=== PATIENT | female | born 1960 | race Caucasian/White ===

== ENCOUNTER → 2020-08-14 12:40 | Outpatient (BNVA) | payer OTHER, SELFPAY | PROVIDERS: PCP Family Medicine; Visit Provider Physician Assistant Medical | DX: S00.33XA Contusion of nose, initial encounter (principal); R04.0 Epistaxis; S60.211A Contusion of right wrist, initial encounter; W22.09XA Striking against other stationary object, initial encounter | CPT/HCPCS: 29125; 70160; 73110; 99204 ==

== ENCOUNTER → 2020-08-16 14:08 | Outpatient (BNVA) | payer OTHER, SELFPAY | PROVIDERS: PCP Family Medicine; Visit Provider Physician Assistant Medical | DX: S00.33XA Contusion of nose, initial encounter (principal); S60.211A Contusion of right wrist, initial encounter; X58.XXXA Exposure to other specified factors, initial encounter | CPT/HCPCS: 70450; 99214 ==

== ENCOUNTER → 2020-08-20 08:43 | Outpatient (BNVA) | payer OTHER, SELFPAY | PROVIDERS: PCP Family Medicine; Visit Provider Physician Assistant Medical | DX: S02.2XXA Fracture of nasal bones, initial encounter for closed fracture (principal); S60.211A Contusion of right wrist, initial encounter; S16.1XXA Strain of muscle, fascia and tendon at neck level, initial encounter; S63.511A Sprain of carpal joint of right wrist, initial encounter; X58.XXXA Exposure to other specified factors, initial encounter | CPT/HCPCS: 73200; 99214 ==

== ENCOUNTER → 2020-08-23 10:48 | Outpatient (BNVA) | payer OTHER, SELFPAY | PROVIDERS: PCP Family Medicine; Visit Provider Physician Assistant Medical | DX: S06.0X0A Concussion without loss of consciousness, initial encounter (principal); S02.2XXA Fracture of nasal bones, initial encounter for closed fracture; S62.171A Displaced fracture of trapezium [larger multangular], right wrist, initial encounter for closed fracture; S60.211A Contusion of right wrist, initial encounter; S16.1XXA Strain of muscle, fascia and tendon at neck level, initial encounter; X58.XXXA Exposure to other specified factors, initial encounter | CPT/HCPCS: 99213 ==

== ENCOUNTER → 2020-08-28 10:21 | Outpatient (BNVA) | payer OTHER, SELFPAY | PROVIDERS: PCP Family Medicine; Visit Provider Orthopaedic Surgery | DX: S60.211A Contusion of right wrist, initial encounter (principal); R20.0 Anesthesia of skin; R20.2 Paresthesia of skin; W22.01XA Walked into wall, initial encounter; Y93.9 Activity, unspecified; Y92.9 Unspecified place or not applicable; Y99.9 Unspecified external cause status | CPT/HCPCS: 99202 ==

== ENCOUNTER → 2020-08-30 11:27 | Outpatient (BNVA) | payer OTHER, SELFPAY | PROVIDERS: PCP Family Medicine; Visit Provider Physician Assistant Medical | DX: S06.9X0A Unspecified intracranial injury without loss of consciousness, initial encounter (principal); S02.2XXA Fracture of nasal bones, initial encounter for closed fracture; S62.101A Fracture of unspecified carpal bone, right wrist, initial encounter for closed fracture; W22.8XXA Striking against or struck by other objects, initial encounter | CPT/HCPCS: 99214 ==

== ENCOUNTER → 2020-09-04 14:42 | Outpatient (BNVA) | payer OTHER, SELFPAY | PROVIDERS: PCP Family Medicine; Visit Provider Physician Assistant Medical | DX: S06.9X0A Unspecified intracranial injury without loss of consciousness, initial encounter (principal); S02.2XXA Fracture of nasal bones, initial encounter for closed fracture; S62.101A Fracture of unspecified carpal bone, right wrist, initial encounter for closed fracture; S16.1XXA Strain of muscle, fascia and tendon at neck level, initial encounter; W22.8XXA Striking against or struck by other objects, initial encounter; M54.10 Radiculopathy, site unspecified | CPT/HCPCS: 99213 ==

== ENCOUNTER → 2020-09-11 10:09 | Outpatient (BNVA) | payer OTHER, SELFPAY | PROVIDERS: PCP Family Medicine; Visit Provider Physician Assistant Medical | DX: M79.601 Pain in right arm (principal) | CPT/HCPCS: 72050; 99214 ==

== ENCOUNTER → 2020-09-18 08:26 | Outpatient (BNVA) | payer OTHER, SELFPAY | PROVIDERS: PCP Family Medicine; Visit Provider Physician Assistant Medical | DX: S06.9X0D Unspecified intracranial injury without loss of consciousness, subsequent encounter (principal); S02.2XXD Fracture of nasal bones, subsequent encounter for fracture with routine healing; X58.XXXD Exposure to other specified factors, subsequent encounter; M54.2 Cervicalgia; M54.10 Radiculopathy, site unspecified | CPT/HCPCS: 99213 ==

== ENCOUNTER 2020-09-21 18:47 | Outpatient (REF) | payer OTHER, SELFPAY ==
--- NOTE | 2020-09-21 18:49 | MR_ITS ---
MR CERVICAL SPINE WITHOUT CONTRAST CLINICAL INFORMATION: Cervical radiculopathy. Question nerve impingement. COMPARISON: Cervical spine radiographs 09/11/2020. Cervical spine MRI 03/12/2018. TECHNIQUE: MRI of the cervical spine was obtained using routine sequences without contrast. FINDINGS: Straightening of the cervical lordosis. Vertebral body heights are maintained. There is moderate disc volume loss at C5-C6 and mild disc volume loss at C6-C7, similar to the prior study. Modic type I endplate signal changes at C6-C7. No additional bone marrow edema. No acute fractures. Craniocervical junction is unremarkable. Cervical arterial flow voids are maintained. No significant soft tissue findings. No cord signal abnormality accounting for artifact. C2-C3: Slight annular disc bulge and mild bilateral facet arthropathy. No central canal stenosis and no foraminal stenosis. C3-C4: Disc osteophyte mildly narrows the central canal. Uncovertebral joint spurring and facet arthropathy result in mild bilateral foraminal encroachment. Findings are unchanged. C4-C5: Disc osteophyte mildly narrows the central canal. Uncovertebral joint spurring and hypertrophic facet arthropathy result in moderate to severe right and mild left foraminal stenosis that is unchanged. C5-C6: Disc osteophyte mildly narrows the central canal. Uncovertebral joint spurring and hypertrophic facet arthropathy result in similar severe bilateral foraminal stenosis. C6-C7: Disc osteophyte mildly narrows the central canal. Uncovertebral joint spurring and hypertrophic facet arthropathy result in mild bilateral foraminal encroachment. Findings are unchanged. C7-T1: Disc contour is normal. No central canal stenosis and no foraminal stenosis. MR/MR cervical spine wo con IMPRESSION: Stable appearing multilevel cervical spondylosis with multifactorial degenerative changes resulting in stable appearing moderate to severe right C4-C5 and severe bilateral C5-C6 foraminal stenosis. No severe central canal stenosis within the cervical spine.
== END 2020-09-21 18:48 | disposition home or self-care (01) ==
LOC: HO.MRI 18:47
PROVIDERS: Visit Provider Internal Medicine
DX: M54.12 Radiculopathy, cervical region (principal)
CPT/HCPCS: 72141

== ENCOUNTER → 2020-09-28 11:09 | Outpatient (BNVA) | payer OTHER, SELFPAY | PROVIDERS: PCP Family Medicine; Visit Provider Physician Assistant Medical | DX: S06.9X0D Unspecified intracranial injury without loss of consciousness, subsequent encounter (principal); S02.2XXD Fracture of nasal bones, subsequent encounter for fracture with routine healing; X58.XXXD Exposure to other specified factors, subsequent encounter; M54.12 Radiculopathy, cervical region | CPT/HCPCS: 99213 ==

== ENCOUNTER → 2020-10-08 11:42 | Outpatient (BNVA) | payer OTHER, SELFPAY | PROVIDERS: PCP Family Medicine; Visit Provider Physician Assistant Medical | DX: S06.9X0D Unspecified intracranial injury without loss of consciousness, subsequent encounter (principal); S02.2XXD Fracture of nasal bones, subsequent encounter for fracture with routine healing; X58.XXXD Exposure to other specified factors, subsequent encounter; M54.12 Radiculopathy, cervical region | CPT/HCPCS: 99213 ==

== ENCOUNTER → 2020-10-19 11:38 | Outpatient (BNVA) | payer OTHER, SELFPAY | PROVIDERS: PCP Family Medicine; Visit Provider Internal Medicine | DX: S06.9X0D Unspecified intracranial injury without loss of consciousness, subsequent encounter (principal); X58.XXXD Exposure to other specified factors, subsequent encounter; M54.12 Radiculopathy, cervical region; F07.81 Postconcussional syndrome | CPT/HCPCS: 99214 ==

== ENCOUNTER → 2020-11-06 11:18 | Outpatient (BNVA) | payer OTHER, SELFPAY | PROVIDERS: PCP Family Medicine; Visit Provider Internal Medicine | DX: F07.81 Postconcussional syndrome (principal); M54.12 Radiculopathy, cervical region | CPT/HCPCS: 99213 ==

== ENCOUNTER 2020-11-20 11:00 | Outpatient (RCR) | payer OTHER, SELFPAY ==
[2020-08-23 14:13] VITALS: BP 110/63; PULSE 61
--- NOTE | 2020-10-18 16:16 | MHC.PT.RE ---
[facility] [place] Office [place] Office [place] Office [address] Kanika Alexander [address] [phone] F: [phone] F: [phone] F: [phone] F: [phone] Physical Therapy Re-evaluation Diagnosis: concussion w/ neck strain Date of Surgery: N/A Date of Evaluation: 08/23/20 Treatments to Date: 12 Cancellations to Date: 0 No Shows to Date: 0 Subjective: pt stated she has been feeling much better since last session. pt arrived reporting 5/10 pain prior to start of session localized to L shoulder blade. Pain Score: 5 Pain Location: cervical spine, L radicular Objective Measures: Cervical AROM: -Flexion: 30 deg -Extension: 30 deg -Sidebend: B 25 (peripheralized pain w/ R SB) -Rotation: B 65 (peripheralized pain w/ R rotation) Vestibular: VOR: -Horizontal: able to maintain gaze stability at 40 bpm, began noticing double -Vertical: able to maintain gaze stability at 40 bpm, began noticing double VORc: unable to maintain at 40 bpm, blurriness reported -Smooth pursuit H test: no nystagmus, no symptoms Saccadic pursuit: -Horizontal: corrective saccade of R eye with R gaze upon fatigue -Vertical: corrective saccade of R eye with downward gaze upon fatigue Assessment: pt reported she feels 70% better since starting PT. pt is still limited by cervical movements, smooth pursuit for activities such as reading and crocheting, and audio input. She current reports 8/50 for her NDI. She has improved regarding her neck AROM and ability to perform smooth, saccadic and VOR pursuits. She now presents with difficulty achieving end range cervical ranges and fatigues with visual tracking. She still demonstrates difficulty concentrating with complex audio inputs and becomes symptomatic. She is able to manage her cervical pain at this time but requires cueing for compliance. pt would benefit from skilled PT for an additional 2x/wk for 4 wks to continue to address residual impairments related to her cervical radiculopathy and concussion symptoms. Short Term Goals: pt will be I w/ HEP to promote self-management of condition. - in progress pt will participate in balance testing to determine baseline functional mobility limitations. - GOAL MET AND WFL Shop Foreman Goals: pt will report statistically significant improvement in self-reported outcome measure, NDI, to promote return to PLOF. pt will demo 0 corrective saccades w/ smooth horizontal pursuit x 10 reps to facilitate return to reading for work-related tasks. -in progress Frequency and Duration: The patient will be seen 2x/wk for 4 wks Treatment Plan: Therapeutic Exercise Dynamic Therapeutic Activities Neuromuscular Re-ed Manual Therapies Joint Mobilization Taping Gait Vestibular Therapy Home Exercise Program Patient Education Mechanical Traction Hot or Cold Pack Reviewed/ Agreed with Student Documentation: Therapist: Electronically signed by: Binta Cuevas PT, DPT Please sign and return to therapist. Thank you for your referral.
--- NOTE | 2020-11-21 15:12 | MHC.PT.DC ---
[facility] Office [place] Office [place] Office [address] [phone] F: [phone] F: [phone] F: [phone] F: [phone] Physical Therapy Discharge Report Diagnosis: concussion w/ neck strain Date of Surgery: N/A Date of Evaluation: 08/23/20 Date of Discharge: 11/21/20 Treatments to Date: 20 Cancellations to Date: 5 No Shows to Date: 0 Discharge Status: Achieved Goals Improved Function Independent with HEP Discharge Summary: Pt arrived stating she is feeling better. She no longer had UT or shoulder pain. She also stated that her dizziness in 90% better after improving her hydration. All her HEPs were reviewed with her. Pt has improved and is independent with all HEPs. Pt d/c from therapy today. Electronically signed by: Binta Cuevas PT, DPT Please sign and return to therapist. Thank you for your referral.
== END 2020-11-21 15:13 | disposition other institution (70) ==
LOC: HO.PT 11:00
PROVIDERS: PCP Family Medicine; Visit Provider Physician Assistant Medical
DX: S06.0X9D Concussion with loss of consciousness of unspecified duration, subsequent encounter (principal); S16.1XXD Strain of muscle, fascia and tendon at neck level, subsequent encounter
CPT/HCPCS: 95992; 97012; 97110; 97112; 97140; 97161; 97164; 97530

== ENCOUNTER → 2020-11-22 10:08 | Outpatient (BNVA) | payer OTHER, SELFPAY | PROVIDERS: PCP Family Medicine; Visit Provider Internal Medicine | DX: F07.81 Postconcussional syndrome (principal); M79.601 Pain in right arm | CPT/HCPCS: 99213 ==

== ENCOUNTER → 2020-11-30 10:46 | Outpatient (BNVA) | payer OTHER, SELFPAY | PROVIDERS: PCP Family Medicine; Visit Provider Internal Medicine | DX: F07.81 Postconcussional syndrome (principal); R41.3 Other amnesia | CPT/HCPCS: 99213 ==

== ENCOUNTER → 2020-12-10 13:50 | Outpatient (BNVA) | payer OTHER, SELFPAY | PROVIDERS: PCP Family Medicine; Visit Provider Internal Medicine | DX: S06.0X0D Concussion without loss of consciousness, subsequent encounter (principal); X58.XXXD Exposure to other specified factors, subsequent encounter; M54.12 Radiculopathy, cervical region | CPT/HCPCS: 99213 ==

== ENCOUNTER → 2021-01-01 13:55 | Outpatient (BNVA) | payer OTHER, SELFPAY | PROVIDERS: PCP Family Medicine; Visit Provider Internal Medicine | DX: F07.81 Postconcussional syndrome (principal) | CPT/HCPCS: 99214 ==

== ENCOUNTER → 2021-01-04 13:41 | Outpatient (BNVA) | payer OTHER, SELFPAY | PROVIDERS: PCP Family Medicine; Visit Provider Internal Medicine | DX: F07.81 Postconcussional syndrome (principal) | CPT/HCPCS: 99213 ==

== ENCOUNTER → 2021-01-11 10:43 | Outpatient (BNVA) | payer OTHER, SELFPAY | PROVIDERS: PCP Family Medicine; Visit Provider Internal Medicine | DX: F07.81 Postconcussional syndrome (principal) | CPT/HCPCS: 99213 ==

== ENCOUNTER → 2024-03-16 11:07 | Outpatient (BNVA) | payer OTHER, SELFPAY | PROVIDERS: PCP Family Medicine; Visit Provider Physician Assistant | DX: S46.812A Strain of other muscles, fascia and tendons at shoulder and upper arm level, left arm, initial encounter (principal); S16.1XXA Strain of muscle, fascia and tendon at neck level, initial encounter; S63.591A Other specified sprain of right wrist, initial encounter; W18.30XA Fall on same level, unspecified, initial encounter; M54.50 Low back pain, unspecified | CPT/HCPCS: 73110; 99204 ==

== ENCOUNTER → 2024-03-25 14:23 | Outpatient (BNVA) | payer OTHER, SELFPAY | PROVIDERS: PCP Family Medicine; Visit Provider Physician Assistant | DX: S63.591A Other specified sprain of right wrist, initial encounter (principal); S46.812A Strain of other muscles, fascia and tendons at shoulder and upper arm level, left arm, initial encounter; W18.30XA Fall on same level, unspecified, initial encounter | CPT/HCPCS: 73200; 99214 ==

== ENCOUNTER → 2024-04-08 12:11 | Outpatient (BNVA) | payer OTHER, SELFPAY | PROVIDERS: PCP Internal Medicine; Visit Provider Physician Assistant | DX: S63.591A Other specified sprain of right wrist, initial encounter (principal); S46.812A Strain of other muscles, fascia and tendons at shoulder and upper arm level, left arm, initial encounter; W18.30XA Fall on same level, unspecified, initial encounter | CPT/HCPCS: 99213 ==

== ENCOUNTER → 2024-04-22 13:30 | Outpatient (BNVA) | payer OTHER, SELFPAY | PROVIDERS: PCP Internal Medicine; Visit Provider Physician Assistant | DX: S63.591D Other specified sprain of right wrist, subsequent encounter (principal); S46.812D Strain of other muscles, fascia and tendons at shoulder and upper arm level, left arm, subsequent encounter; W18.30XD Fall on same level, unspecified, subsequent encounter | CPT/HCPCS: 99214 ==

== ENCOUNTER 2024-05-04 11:30 | Outpatient (RCR) | payer OTHER, SELFPAY ==
--- NOTE | 2024-03-28 11:58 | MHC.OT.EP ---
[address] [phone] Occupational Therapy Plan of Care Patient Name: Bing Ramirez Date of Evaluation: 03/28/24 Diagnosis: Right wrist strain Pain Location: Right ulnar wrist and volar wrist/forearm, sore/ache 9/10 pain w/ movement 7/10 resting pain Pain Score: 8 Pain Scale Used: Numeric (0 - 10) Aggravating Factors: General use, movements, grasping objects Alleviating Factors: Advil Assessment: 63 yo female was at work, had right hand resting on the desk and chair rolled back, resulting in her falling and straining her right wrist. She was seen in the following day and they put her in a wrist brace for protection and referred to OT for continued treatment. On assessment today, she continues to have high pain in right hand, specifically in ulnar wrist w/ forearm rotation and volar wrist w/ extension. Wrist extension is tight with pulling feeling through palm and reconciliation clerk strength is low compared to left hand. I anticipate she will do well w/ course of OT to address pain, weakness and decreased range with focus on activity modifcation, functional movements and strengthening and overall stability. Frequency and Duration: The patient will be seen 2x/wk for 4 weeks Short Term Goals: Ind w/ HEP Good follow through w/ joint protection techniques to reduce wrist strain in rotation Ind w/ isometric wrist exercises <3/10 resting pain Nursing Home Goals: Right wrist ext >65 degrees Right gross grasp >40lb Pt to demo weightbearing through palm w/ ease Pain free right hand/wrist at rest QuickDASH score <50 pts Treatment Plan: Therapeutic Exercise Therapeutic Activity Home Exercise Program Splinting Neuro Re-ed Patient Education Desensitization/Sensory Re-ed Edema Control ADL Training Ultrasound Paraffin Fluidotherapy MHP Cold Packs Joint Mobilization Soft Tissue Mobilization Kinesiotaping Electronically Signed By: Frannie Ward OTR/Shayan CHT Please Sign and return to therapist. Thank you once again for your referral.
--- NOTE | 2024-04-22 11:13 | MHC.OT.OP ---
[address] [phone] F: [phone] Occupational Therapy Progress Note Patient Name: Bing Ramirez Diagnosis: Right wrist strain Date of Evaluation: 03/28/24 Treatments to Date: 8 Subjective: It's not constant, but it can still be a 7-8 Pain Score: 7 Pain Location: right wrist Objective Measures: R Gross Grasp 25lb R Wrist ext/flex 52/70 Status: Not Progressing Assessment: Bing is about 6 weeks s/p right wrist strain. She continues to have high pain and difficulty completing HEP, we have been unable to progress program due to persistent pain. No change in strength or range. She has good follow through w/ nighttime resting wrist orthosis and reports resting throughout the day. We can continue to trial therapy, but no significant gains and would benefit from cont'd work up. Short Term Goals: Ind w/ HEP Good follow through w/ joint protection techniques to reduce wrist strain in rotation Ind w/ isometric wrist exercises <3/10 resting pain [place] Goals: Right wrist ext >65 degrees Right gross grasp >40lb Pt to demo weightbearing through palm w/ ease Pain free right hand/wrist at rest QuickDASH score <50 pts Frequency and Duration: The patient will be seen 2x/wk for 3 weeks Treatment Plan: Therapeutic Exercise Therapeutic Activity Home Exercise Program Splinting Patient Education Edema Control ADL Training Ultrasound Fluidotherapy MHP Cold Packs Joint Mobilization Soft Tissue Mobilization Kinesiotaping Electronically Signed By: Frannie Ward OTR/L CHT Reviewed/agree with student documentation: Therapist:
== END 2024-05-18 13:57 | disposition home or self-care (01) ==
LOC: HO.OT 11:30
PROVIDERS: PCP Internal Medicine; Visit Provider Physician Assistant
DX: S66.911D Strain of unspecified muscle, fascia and tendon at wrist and hand level, right hand, subsequent encounter (principal)
CPT/HCPCS: 97035; 97110; 97140; 97165

== ENCOUNTER → 2024-05-13 13:39 | Outpatient (BNVA) | payer OTHER, SELFPAY | PROVIDERS: PCP Internal Medicine; Visit Provider Physician Assistant | DX: S46.812D Strain of other muscles, fascia and tendons at shoulder and upper arm level, left arm, subsequent encounter (principal); S63.591D Other specified sprain of right wrist, subsequent encounter; W18.30XD Fall on same level, unspecified, subsequent encounter | CPT/HCPCS: 99214 ==

== ENCOUNTER → 2024-06-24 13:39 | Outpatient (BNVA) | payer OTHER, SELFPAY | PROVIDERS: PCP Internal Medicine; Visit Provider Physician Assistant | DX: S63.501D Unspecified sprain of right wrist, subsequent encounter (principal); S46.812D Strain of other muscles, fascia and tendons at shoulder and upper arm level, left arm, subsequent encounter; W18.30XD Fall on same level, unspecified, subsequent encounter | CPT/HCPCS: 99213 ==

== ENCOUNTER → 2024-07-15 13:28 | Outpatient (BNVA) | payer OTHER, SELFPAY | PROVIDERS: PCP Internal Medicine; Visit Provider Physician Assistant | DX: S63.501D Unspecified sprain of right wrist, subsequent encounter (principal); S46.812D Strain of other muscles, fascia and tendons at shoulder and upper arm level, left arm, subsequent encounter; W18.30XD Fall on same level, unspecified, subsequent encounter | CPT/HCPCS: 99213 ==

== ENCOUNTER → 2024-08-19 13:49 | Outpatient (BNVA) | payer OTHER, SELFPAY | PROVIDERS: PCP Internal Medicine; Visit Provider Physician Assistant | DX: S63.591D Other specified sprain of right wrist, subsequent encounter (principal); W18.30XD Fall on same level, unspecified, subsequent encounter | CPT/HCPCS: 99214 ==

== ENCOUNTER → 2024-12-08 13:24 | Outpatient (BNVA) | payer OTHER, SELFPAY | PROVIDERS: PCP Internal Medicine; Visit Provider Physician Assistant | DX: M54.2 Cervicalgia (principal); M25.512 Pain in left shoulder; Z02.79 Encounter for issue of other medical certificate | CPT/HCPCS: 72040; 99214 ==

== ENCOUNTER 2024-12-19 13:02 | Outpatient (REF) | payer OTHER, SELFPAY ==
--- NOTE | ~2024-12-19 | MR_ITS ---
EXAMINATION: MR CERVICAL SPINE WITHOUT CONTRAST CLINICAL INFORMATION: Limited range of motion. Paresthesia C4-5. COMPARISON: February 19, 2021 . TECHNIQUE: MRI of the cervical spine was obtained using routine sequences without contrast. FINDINGS: Craniocervical junction is intact. Mild bone marrow STIR signal in the endplates of C4-5. Multilevel Modic type II endplate changes at C5-6 C6-7 levels. Marginal osteophyte formation and decreased intervertebral disc height and signal C5-6 and C6-7 and C4-5 levels. C2-3: Broad-based disc osteophyte complex formation. No central spinal canal or neuroforamina stenosis. C3-4: Central disc osteophyte complex formation. No cord compression. No neuroforamina stenosis. C4-5: There is a broad-based central disc herniation resulting in ventral spinal cord deformity without cord signal abnormality. Bilateral neuroforamina stenosis on a degenerative basis. C5-6: Broad-based disc osteophyte compresses formation. Bilateral neuroforamina stenosis. There is CSF in the dorsal aspect of the thecal sac. C6-7: Broad-based disc osteophyte compresses formation resulting in ventral deformity of the thecal sac. No neuroforamina stenosis. The C7-T1: No disc herniation. No neuroforamina stenosis. No prevertebral compartment hematoma, mass or fluid collection. Flow-void signal within the main vessels is normal. Right vertebral artery is dominant. MR/MR cervical spine wo con IMPRESSION: Central broad-based disc herniation C4-5 abutting the cord without cord edema and or myelopathy. Multilevel cervical spondylosis resulting in bilateral neuroforamina stenosis at C4-5 and C5-6 levels.. Electronically signed by: Miguel Angel Foote MD 12/19/2024 03:26 PM EDT
== END 2024-12-19 13:03 | disposition home or self-care (01) ==
LOC: HO.MRI 13:02
PROVIDERS: Visit Provider Internal Medicine
DX: R20.2 Paresthesia of skin (principal)
CPT/HCPCS: 72141

== ENCOUNTER → 2024-12-19 13:15 | Outpatient (BNV) | payer OTHER, SELFPAY | PROVIDERS: Visit Provider Radiology Diagnostic Radiology | DX: M50.121 Cervical disc disorder at C4-C5 level with radiculopathy (principal) | CPT/HCPCS: 72141 ==

== ENCOUNTER → 2024-12-22 11:09 | Outpatient (BNVA) | payer OTHER, SELFPAY | PROVIDERS: Visit Provider Physician Assistant | DX: S16.1XXD Strain of muscle, fascia and tendon at neck level, subsequent encounter (principal); S46.812D Strain of other muscles, fascia and tendons at shoulder and upper arm level, left arm, subsequent encounter; W18.30XD Fall on same level, unspecified, subsequent encounter; Z02.79 Encounter for issue of other medical certificate | CPT/HCPCS: 99214 ==

== ENCOUNTER → 2025-03-01 10:32 | Outpatient (BNVA) | payer OTHER, SELFPAY | PROVIDERS: Visit Provider Physician Assistant | DX: M50.10 Cervical disc disorder with radiculopathy, unspecified cervical region (principal); Z02.79 Encounter for issue of other medical certificate | CPT/HCPCS: 99213 ==

== ENCOUNTER → 2025-04-27 10:24 | Outpatient (BNVA) | payer OTHER, SELFPAY | PROVIDERS: Visit Provider Physician Assistant | DX: M54.2 Cervicalgia (principal); M25.531 Pain in right wrist; Z02.79 Encounter for issue of other medical certificate | CPT/HCPCS: 99213 ==